=== PATIENT | male | born 1995 | race Caucasian/White ===

== ENCOUNTER 2017-03-24 20:10 | Emergency (ER) | payer SELFPAY ==
[~2017-03-24] VITALS: Ht 175.3 cm; Wt 56.7 kg
[~2017-03-24 20:10] MED LIST: NORCO 5-325 TA1 EACH PO
[2017-03-24] MEDS ORDERED: ACETAMINOPHEN325 M1 PO (20:23)
[2017-03-24] MEDS ORDERED: TRAMADOL HCL50 MG PO (22:05)
== END 2017-03-24 22:08 | disposition home or self-care (01) ==
LOC: ED 20:10
DX: T14.8 Other injury of unspecified body region (principal); S80.211A Abrasion, right knee, initial encounter; F17.200 Nicotine dependence, unspecified, uncomplicated; V86.99XA Unspecified occupant of other special all-terrain or other off-road motor vehicle injured in nontraffic accident, initial encounter
CPT/HCPCS: 71101; 73080; 73560; 99283

== ENCOUNTER 2017-12-02 20:59 | Emergency (ER) | payer BC ==
[~2017-12-02] VITALS: Ht 175.3 cm; Wt 59.0 kg
[~2017-12-02 20:59] MED LIST changes: +ACETAMINOPHEN325 M1 PO; +TRAMADOL HCL50 MG PO
[2017-12-02] MEDS ORDERED: TRAMADOL HCL50 MG PO (21:54)
== END 2017-12-02 22:03 | disposition home or self-care (01) ==
LOC: ED 20:59
DX: S20.212A Contusion of left front wall of thorax, initial encounter (principal); V27.4XXA Motorcycle driver injured in collision with fixed or stationary object in traffic accident, initial encounter; F17.200 Nicotine dependence, unspecified, uncomplicated
CPT/HCPCS: 71046; 99283

== ENCOUNTER 2021-07-22 09:42 | Emergency (ER) | payer BC ==
[~2021-07-22] VITALS: Ht 175.3 cm; Wt 68.0 kg
[2021-07-22] MEDS ORDERED: HYDROCODON-ACE1 EA11 PO (12:03)
== END 2021-07-22 12:40 | disposition home or self-care (01) ==
LOC: ED 09:42
DX: S05.31XA Ocular laceration without prolapse or loss of intraocular tissue, right eye, initial encounter (principal); W22.8XXA Striking against or struck by other objects, initial encounter; F17.200 Nicotine dependence, unspecified, uncomplicated
CPT/HCPCS: 99283; A9270

== ENCOUNTER 2022-11-28 14:23 | Emergency (ER) | payer OTHER ==
[~2022-11-28] VITALS: Ht 175.3 cm; Wt 71.7 kg
[~2022-11-28 14:23] MED LIST changes: +HYDROCODON-ACE1 EA11 PO
[2022-11-28 14:30] VITALS: BP 140/90
[2022-11-28] MEDS ORDERED: HYDROCODON-ACE1 EA11 PO (16:40)
== END 2022-11-28 16:50 | disposition home or self-care (01) ==
LOC: ED 14:23
DX: F17.200 Nicotine dependence, unspecified, uncomplicated (principal); S32.029A Unspecified fracture of second lumbar vertebra, initial encounter for closed fracture; S40.011A Contusion of right shoulder, initial encounter; V54.5XXA Driver of pick-up truck or van injured in collision with heavy transport vehicle or bus in traffic accident, initial encounter; Y92.411 Interstate highway as the place of occurrence of the external cause
CPT/HCPCS: 36415; 70450; 71260; 72125; 73030; 74177; 80053; 81003; 85025; 86850; 86900; 86901; 99284-25; A9270; G0480; J1170; J1885; J7121

== ENCOUNTER 2024-12-03 17:12 | Emergency (ER) | payer OTHER | END 2024-12-03 19:14 | disposition home or self-care (01) | LOC: ED 17:12 | DX: S01.511A Laceration without foreign body of lip, initial encounter (principal); Y04.8XXA Assault by other bodily force, initial encounter; F17.200 Nicotine dependence, unspecified, uncomplicated ==